=== PATIENT | male | born 1980 ===

== ENCOUNTER 2017-09-01 09:18 | Emergency (ER) | payer OTHER ==
[2017-09-01 09:23] VITALS: BP 124/84; PULSE 61; RESP 16; TEMP 98; O2SAT 99
[2017-09-01] MEDS ORDERED: Tmp-Smz 800 mg-160 mg DS Tab PO STA (09:44)
[2017-09-01] MEDS ORDERED: Piperacillin/Tazobact 3.375 gm 100 ML IVPB ONE (10:10)
[2017-09-01] MEDS: Piperacillin/Tazobact 3.375 gm 100 ML IVPB STA (10:19)
[2017-09-01] MEDS ORDERED: Bacitracin 500 Units/gm Oint Foilpak UD ONE (10:21)
--- NOTE | 2017-09-01 10:23 | C.PDOC ---
History Of Present Illness 36 year old male for evaluation of after he sustained an injury to his left 2nd digit yesterday. Patient states he was drilling when he accidentally drilled into the prabhakar aspect of his left 2nd digit. Patient went to outpatient clinic for evaluation, and was advised to go to the ED. Patient did not go to the ED yesterday as advised, and presents today for further evaluation. He states he is UTD with tetanus immunization and denies sensory changes, fever, chills, or discharge from the area of injury. Time Seen by Provider: 09/01/17 09:28 Chief Complaint (Nursing): Abnormal Skin Integrity History Per: Patient History/Exam Limitations: no limitations Onset/Duration Of Symptoms: Hrs Current Symptoms Are (Timing): Still Present Location Of Injury: Left: Hand (2nd digit ) Quality Of Symptoms: Painful. denies: Draining Additional History Per: Patient Past Medical History Reviewed: Historical Data, Nursing Documentation, Vital Signs Vital Signs: Last Vital Signs Temp 98 F 09/01/17 09:20 Pulse 61 09/01/17 09:20 Resp 16 09/01/17 09:20 BP 124/84 09/01/17 09:20 Pulse Ox 99 09/01/17 14:38 - Medical History PMH: No Chronic Diseases Surgical History: No Surg Hx Family History: States: Unknown Family Hx - Social History Hx Alcohol Use: Yes Hx Substance Use: No - Immunization History Hx Tetanus Toxoid Vaccination: Yes Hx Influenza Vaccination: No Hx Pneumococcal Vaccination: No Review Of Systems Constitutional: Negative for: Fever, Chills Skin: Positive for: Other (injury to left second digit, no discharge ) Physical Exam - Physical Exam Appears: Non-toxic, No Acute Distress Skin: Normal Color, Warm, Dry, Other (prabhakar aspect of left second digit: there is a puncture wound to the center of the distal digit with surrounding erythema and swelling ) Extremity: Normal ROM, Tenderness (left second digit ), Capillary Refill (less than 2 seconds ) Pulses: Left Radial: Normal, Right Radial: Normal Neurological/Psych: Oriented x3, Normal Speech, Normal Cognition, Normal Sensation ED Course And Treatment O2 Sat by Pulse Oximetry: 99 (on RA) Pulse Ox Interpretation: Normal Progress Note: left hand XR ordered and reviewed. Keflex PO, Zosyn IVP, and Bactrim PO given. Bacitracin, gauze dressing and finger splint applied to second digit. Patient is stable for discharge. Advised to follow up with hand surgery or orthopedic care within 1 week for further evaluation. Advised to return to the ED if symptoms persist or worsen. Disposition Counseled Patient/Family Regarding: Diagnosis, Need For Followup, Rx Given - Disposition Referrals: [facility] MD [Staff Provider] - [facility] [place] [Outside] Disposition: HOME/ ROUTINE Disposition Time: 10:45 Condition: STABLE Additional Instructions: FOLLOW UP WITH HAND SURGEON/ORTHOPEDICS WITHIN 1 WEEK USE ANTIBIOTICS UNTIL FINISHED RETURN TO EMERGENCY ROOM IF SYMPTOMS WORSEN, SUCH REDNESS, PAIN, SWELLING, DISCHARGE SEGUIMIENTO CON SURGEON / ORTOPEDIA DE MANO DENTRO DE 1 SEMANA USE ANTIBITICOS HASTA QUE HAYA TERMINADO VUELVA A LA JOSE DE EMERGENCIA SI LOS SNTOMAS SE AGOTAN, RORO ENROJECIMIENTO, DOLOR, HINCHAZN, DESCARGA Prescriptions: Amoxicillin/Clavulanate [Augmentin 875 MG-125 MG] 1 tab PO BID #14 tab Ibuprofen [Motrin Tab] 600 mg PO Q6 PRN #30 tab PRN Reason: fever/pain Instructions: Wound Care (DC), Finger Fracture (DC) Forms: [employer] ([place]), Work Excuse Print Language: UKRAINIAN - POA Present On Arrival: Falls Or Trauma - Clinical Impression Clinical Impression: Puncture wound of finger, Finger fracture, left - Scribe Statement The provider has reviewed the documentation as recorded by the Scribe (Lanny Garcia) Provider Attestation: All medical record entries made by the Scribe were at my direction and personally dictated by me. I have reviewed the chart and agree that the record accurately reflects my personal performance of the history, physical exam, medical decision making, and the department course for this patient. I have also personally directed, reviewed, and agree with the discharge instructions and disposition.
--- NOTE | 2017-09-01 10:54 | RAD ---
Date of service: 09/01/2017 PROCEDURE: Left Index finger radiographs. HISTORY: INJURY WITH DRILL, R/O FX COMPARISON: None. TECHNIQUE: AP radiograph of the left hand, as well as spot oblique and lateral images of index finger were obtained. FINDINGS: LEFT INDEX FINGER: There is fracture of the medial base of the distal phalanx left index finger with cortex up lifted medially. Underlying trace retained foreign body is not excluded completely as amorphous subtle hyperdensity is identified adjacent to the fracture if not represent fracture intrinsically. Remainder of the left hand (as seen on the AP view) grossly intact. JOINTS: Normal. SOFT TISSUES: Normal. OTHER FINDINGS: None. IMPRESSION: Limited fracture of the base of the distal phalanx left index finger is identified. Though not definite, adjacent retained radiodense foreign body is not excluded completely. No subluxation or dislocation.
== END 2017-09-01 11:09 | disposition home or self-care (01) ==
LOC: C.ER 09:18
DX: S62.631A Displaced fracture of distal phalanx of left index finger, initial encounter for closed fracture (principal); S61.231A Puncture wound without foreign body of left index finger without damage to nail, initial encounter; W31.89XA Contact with other specified machinery, initial encounter; Y92.89 Other specified places as the place of occurrence of the external cause; Y99.0 Civilian activity done for income or pay
CPT/HCPCS: 73140; 96365; 99284; J2543

== ENCOUNTER 2018-06-22 08:21 | Outpatient (CLI) | payer BC | END 2018-06-22 08:22 | disposition home or self-care (01) | LOC: C.PAT 08:21 ==

== ENCOUNTER 2018-06-29 09:47 | Day surgery (SDC) | payer BC | END 2018-06-29 21:10 | disposition home or self-care (01) | LOC: C.SDS 09:47 | DX: K80.10 Calculus of gallbladder with chronic cholecystitis without obstruction (principal) ==